=== PATIENT | female | born 1990 | race African-American/Black ===

== ENCOUNTER 2017-05-28 15:32 | Emergency (ER) | payer BC ==
[~2017-05-28] VITALS: Ht 160 cm; Wt 78.0 kg
[~2017-05-28 15:32] MED LIST: DEPO-MEDRO80 MG/1 ML IJ; FLAGYL500 MG PO; IBUPROFEN 600600 M1 PO; NORCO 5-325 TA1 EACH PO; PROBIOTIC1 EAC2 PO
[2017-05-28 16:05] LABS: URINE BILIRUBIN NEGATIVE (Negative); URINE BLOOD TRACE (Negative); URINE COLOR YELLOW; URINE GLUCOSE-RANDOM* NEGATIVE (Negative); URINE KETONES TRACE (Negative); URINE NITRITE NEGATIVE (Negative); URINE PROTEIN (DIPSTICK) NEGATIVE (Negative); URINE SPECIFIC GRAVITY >= 1.030 (1.003-1.035); URINE UROBILINOGEN 0.2 E.U./dl (0.2-1.0)
[2017-05-28 16:26] LABS: ABSOLUTE NEUTROPHILS 2.7 thou/uL (1.4-8.2); BASOPHILS 0.9 % (0.0-2.0); HEMATOCRIT 36.1 % (37.0-47.0); HEMOGLOBIN 12.3 gm/dL (12.0-15.0); LYMPHOCYTES 33.7 % (24.0-44.0); MCH 29.6 pg (26.0-34.0); MCHC 34.2 g/dL (28.0-37.0); MCV 86.6 fL (80.0-100.0); MONOCYTES 8.3 % (1.0-8.0); PLATELET COUNT 231 thou/uL (150-400); POLYS 56.1 % (36.0-66.0); RBC 4.17 mil/uL (4.20-5.00); RDW 13.5 % (10.5-14.5); WBC 4.9 thou/uL (4.0-11.0)
[2017-05-28 16:33] LABS: MANUAL DIFF NO
[2017-05-28 16:40] LABS: CALCIUM 9.2 mg/dL (8.5-10.1); CREATININE 0.7 mg/dL (0.6-1.0); POTASSIUM 3.1 mmol/L (3.5-5.1)
[2017-05-28 16:41] LABS: ALBUMIN 4.2 g/dL (3.4-5.0); TOTAL BILIRUBIN 0.7 mg/dL (<0.1-1.0); TOTAL PROTEIN 7.8 g/dL (6.4-8.2)
[2017-05-28] MEDS ORDERED: IBUPROFEN 600600 M1 PO (17:08)
[2017-05-28 17:57] VITALS: BP 121/74
== END 2017-05-28 17:58 | disposition home or self-care (01) ==
LOC: ER 15:32
PROVIDERS: Nurse Practitioner Family
DX: N83.202 Unspecified ovarian cyst, left side (principal); N83.201 Unspecified ovarian cyst, right side; E87.6 Hypokalemia